=== PATIENT | female | born 1970 | race Caucasian/White ===

== ENCOUNTER 2018-11-21 16:57 | Emergency (ER) | payer MEDICAID, OTHER ==
[~2018-11-21] VITALS: Ht 144.8 cm; Wt 42.3 kg
[2018-11-21 16:58] VITALS: BP 108/64
[2018-11-21] MEDS ORDERED: OMEP-218 (17:03)
[2018-11-21] MEDS ORDERED: INCR1INH (17:03)
[2018-11-21] MEDS ORDERED: VENTAER (17:03)
[2018-11-21] MEDS ORDERED: ATOR1TAB21 (17:03)
[2018-11-21] MEDS ORDERED: HYDR-3363 PO (17:23)
[2018-11-21] MEDS ORDERED: MEDR4PAK PO (17:23)
[2018-11-21] MEDS ORDERED: hydrOXYzine 25 MG TAB PO ONE (17:30)
[2018-11-21] MEDS ORDERED: predniSONE 20 MG TAB PO ONE (17:30)
[2018-11-22] MEDS ORDERED: DIPH25CA PO (03:33)
[2018-11-22] MEDS ORDERED: PEPC1TAB5 PO (03:33)
== END 2018-11-21 17:37 | disposition home or self-care (01) ==
LOC: M ED 16:57
DX: T49.4X1A Poisoning by keratolytics, keratoplastics, and other hair treatment drugs and preparations, accidental (unintentional), initial encounter (principal); Y92.9 Unspecified place or not applicable; Y93.9 Activity, unspecified; E78.00 Pure hypercholesterolemia, unspecified; J44.9 Chronic obstructive pulmonary disease, unspecified; Z72.0 Tobacco use; Z79.899 Other long term (current) drug therapy; Z88.6 Allergy status to analgesic agent

== ENCOUNTER 2018-11-22 01:50 | Emergency (ER) | payer OTHER ==
[~2018-11-22] VITALS: Ht 144.8 cm; Wt 42.4 kg
[~2018-11-22 01:50] MED LIST: ATOR1TAB21; HYDR-3363 PO; INCR1INH; MEDR4PAK PO; OMEP-218; VENTAER
[2018-11-22] MEDS ORDERED: FAMOTIDINE INJ 20MG/2ML VIAL (S0028) IVP ONE (02:30)
[2018-11-22] MEDS ORDERED: methylPREDNISolone INJ 125 MG/2 ML VIAL (J2930) IV ONE (02:30)
[2018-11-22] MEDS ORDERED: diphenhydrAMINE INJ 50MG/ML VIAL (J1200) IV ONE (02:30)
[2018-11-22 02:37] LABS: BASO % 0.1 % (0.0-1.0); EOS % 0.2 % (0.0-3.0); HEMATOCRIT 45.5 % (36.0-47.0); HEMOGLOBIN 15.5 g/dl (12.0-15.5); LYMPH # 0.9 10^3/uL (1.5-4.5); LYMPH % 10.5 % (24.0-44.0); MEAN CORPUSCULAR HEMOGLOBIN 33.3 pg (27.0-33.0); MEAN CORPUSCULAR HGB CONC 34.1 g/dl (32.0-36.5); MEAN CORPUSCULAR VOLUME 97.8 fl (80.0-96.0); MONO # 0.2 10^3/uL (0.0-0.8); MONO % 1.9 % (0.0-5.0); NEUTROPHILS # 7.5 10^3/uL (1.8-7.7); NEUTROPHILS % 86.9 % (36.0-66.0); PLATELET COUNT, AUTOMATED 344 10^3/uL (150-450); RED BLOOD COUNT 4.65 10^6/uL (4.00-5.40); WHITE BLOOD COUNT 8.6 10^3/uL (4.0-10.0)
[2018-11-22 03:15] LABS: BLOOD UREA NITROGEN 9 MG/DL (7-18); CALCIUM LEVEL 9.2 MG/DL (8.5-10.1); CARBON DIOXIDE LEVEL 27 MEQ/L (21-32); CHLORIDE LEVEL 106 MEQ/L (98-107); CREATININE FOR GFR 0.91 MG/DL (0.55-1.30); GLOMERULAR FILTRATION RATE > 60.0 (>58); GLUCOSE, FASTING 156 MG/DL (70-100); POTASSIUM SERUM 4.4 MEQ/L (3.5-5.1); SODIUM LEVEL 139 MEQ/L (136-145)
[2018-11-22] MEDS ORDERED: DIPH25CA PO (03:33)
[2018-11-22] MEDS ORDERED: PEPC1TAB5 PO (03:33)
[2018-11-22 04:00] VITALS: BP 106/66
== END 2018-11-22 04:06 | disposition home or self-care (01) ==
LOC: M ED 01:50
DX: R22.0 Localized swelling, mass and lump, head (principal); T49.4X5A Adverse effect of keratolytics, keratoplastics, and other hair treatment drugs and preparations, initial encounter; X58.XXXA Exposure to other specified factors, initial encounter; Y92.89 Other specified places as the place of occurrence of the external cause; Z79.899 Other long term (current) drug therapy; Z88.8 Allergy status to other drugs, medicaments and biological substances
CPT/HCPCS: 36415; 80048; 85025; 86140; 96374; 96375; 99284; J1200; J2930

== ENCOUNTER → 2019-07-12 | Outpatient (CLI) | payer OTHER, MEDICAID ==
[~2019-07-12] MED LIST changes: +DIPH25CA32 PO; +PEPC1TAB5 PO
--- NOTE | 2019-07-12 12:09 | REPMRS ---
Patient History The patient states she has not had a clinical breast exam in over a year. Family history of unknown cancer in father, mouth cancer in maternal aunt. Digital Mammo Screening Bilat: July 12, 2019 - Exam #: [id number] Bilateral CC and MLO view(s) were taken. Technologist: Federica Cheema, Technologist Prior study comparison: March 13, 2017, bilateral digital woman screen mammo, performed at Outside [facility]. March 05, 2016, bilateral digital woman screen mammo, performed at Outside [facility]. February 03, 2015, bilateral digital woman screen mammo, performed at Outside Facility. FINDINGS: There are scattered fibroglandular densities. There has been no change in the appearance of the mammogram from the prior studies. There is a mild amount of scattered fibroglandular density which is fairly symmetric. There is no interval development of dominant mass, architectural distortion, or grouped microcalcification suggestive of malignancy. 3-D tomosynthesis shows no additional findings. Assessment: BI-RADS/ACR category 1 mammogram. Negative Mammogram. Recommendation Routine screening mammogram of both breasts in 1 year (for women over age 40). This patient's Lifetime Breast Cancer Risk is estimated at 7.5 %. This mammogram was interpreted with the aid of an FDA-approved computer-aided dectection system. Electronically Signed By: Javid Arevalo MD 07/12/19 [id number]
== END ==
LOC: M RAD 09:33
PROVIDERS: ATTEND Physician Assistant
DX: Z12.31 Encounter for screening mammogram for malignant neoplasm of breast (principal)

== ENCOUNTER 2019-09-09 15:37 | Emergency (ER) | payer MEDICAID, OTHER ==
[~2019-09-09] VITALS: Ht 144.8 cm; Wt 42.4 kg
[2019-09-09] MEDS ORDERED: BACL10TA2 (15:46)
[2019-09-09 17:42] VITALS: BP 118/73
== END 2019-09-09 17:46 | disposition home or self-care (01) ==
LOC: M ED 15:37
DX: S20.462A Insect bite (nonvenomous) of left back wall of thorax, initial encounter (principal); I10 Essential (primary) hypertension; F17.210 Nicotine dependence, cigarettes, uncomplicated; Y92.017 Garden or yard in single-family (private) house as the place of occurrence of the external cause; Y93.H2 Activity, gardening and landscaping; Z88.6 Allergy status to analgesic agent; Z79.51 Long term (current) use of inhaled steroids; Z79.899 Other long term (current) drug therapy

== ENCOUNTER 2019-11-19 07:59 | Emergency (ER) | payer OTHER ==
[~2019-11-19] VITALS: Ht 144.8 cm; Wt 42.3 kg
[~2019-11-19 07:59] MED LIST changes: +BACL10TA2
[2019-11-19] MEDS ORDERED: ALBUTEROL SULFATE 2.5 MG/0.5 ML INH NEB SOLN NEB ONE (08:30)
--- NOTE | 2019-11-19 09:00 | REP ---
CHEST, TWO VIEWS: Two views of the chest are performed. No infiltrate is seen bilaterally. There is a possible 7 mm nodular density in the right upper lobe. Heart is normal in size. There is mild calcification of the thoracic aorta. The mediastinal silhouette is unremarkable. No compression deformity is seen of thoracic vertebral bodies. IMPRESSION: No acute infiltrate. Possible 7 mm nodule right upper lobe. Recommend CT of the chest to further evaluate. Electronically Signed by Donnell Downing MD 11/19/2019 04:40 P
[2019-11-19 09:03] LABS: BASO # 0.1 10^3/uL (0.0-0.2); BASO % 0.4 % (0.0-1.0); EOS # 0.3 10^3/uL (0.0-0.5); EOS % 2.7 % (0.0-3.0); HEMATOCRIT 45.4 % (36.0-47.0); HEMOGLOBIN 15.2 g/dl (12.0-15.5); LYMPH # 2.5 10^3/uL (1.5-5.0); LYMPH % 20.1 % (24.0-44.0); MEAN CORPUSCULAR HEMOGLOBIN 32.8 pg (27.0-33.0); MEAN CORPUSCULAR HGB CONC 33.5 g/dl (32.0-36.5); MEAN CORPUSCULAR VOLUME 97.8 fl (80.0-96.0); MONO # 0.8 10^3/uL (0.0-0.8); MONO % 6.4 % (0.0-5.0); NEUTROPHILS # 8.7 10^3/uL (1.5-8.5); NEUTROPHILS % 70.2 % (36.0-66.0); PLATELET COUNT, AUTOMATED 351 10^3/uL (150-450); RED BLOOD COUNT 4.64 10^6/uL (4.00-5.40); WHITE BLOOD COUNT 12.4 10^3/uL (4.0-10.0)
[2019-11-19] MEDS ORDERED: IPRATROPIUM 0.5MG/ALBUTEROL 2.5MG INH SOL UD 3ML (DUONEB)(J7620) NEB ONE ×2 (09:15→10:00)
[2019-11-19 09:23] LABS: INFLUENZA A AMPLIFICATION NEGATIVE (NEGATIVE); INFLUENZA B AMPLIFICATION NEGATIVE (NEGATIVE)
[2019-11-19 09:30] LABS: BLOOD UREA NITROGEN 12 MG/DL (7-18); CALCIUM LEVEL 9.4 MG/DL (8.5-10.1); CARBON DIOXIDE LEVEL 27 MEQ/L (21-32); CHLORIDE LEVEL 105 MEQ/L (98-107); CK-MB VALUE MASS 1.4 NG/ML (<3.6); CPK CREATINE PHOSPHOKINASE 329 U/L (26-192); CREATININE FOR GFR 0.82 MG/DL (0.55-1.30); GLOMERULAR FILTRATION RATE > 60.0 (>58); GLUCOSE, FASTING 71 MG/DL (70-100); MB/CK RELATIVE INDEX 0.43 (< OR =4); POTASSIUM SERUM 4.5 MEQ/L (3.5-5.1); SODIUM LEVEL 141 MEQ/L (136-145); TROPONIN I < 0.02 NG/ML (< 0.10)
[2019-11-19] MEDS ORDERED: methylPREDNISolone INJ 125 MG/2 ML VIAL (J2930) IV ONE (09:45)
[2019-11-19 10:09] LABS: NT-PRO BNP 41 PG/ML (<125)
[2019-11-19] MEDS ORDERED: BENZONATATE 100 MG CAP PO ONE (10:30)
[2019-11-19] MEDS ORDERED: AZIT-12 PO (10:52)
[2019-11-19] MEDS ORDERED: PRED20TA PO (10:52)
[2019-11-19] MEDS ORDERED: TESS100C PO (10:55)
[2019-11-19 11:01] VITALS: BP 105/61
--- NOTE | 2019-11-22 07:59 | ED PDOC ---
Post-Departure Follow-Up dr guillaume and [facility] faxed formal repiort iof cxr for Gail Delaney MD Nov 22, 2019 07:58
== END 2019-11-19 11:11 | disposition home or self-care (01) ==
LOC: M ED 07:59
DX: J44.1 Chronic obstructive pulmonary disease with (acute) exacerbation (principal); J06.9 Acute upper respiratory infection, unspecified; K21.9 Gastro-esophageal reflux disease without esophagitis; R91.1 Solitary pulmonary nodule; F17.200 Nicotine dependence, unspecified, uncomplicated; Z79.51 Long term (current) use of inhaled steroids; Z79.899 Other long term (current) drug therapy; Z88.6 Allergy status to analgesic agent; Z88.8 Allergy status to other drugs, medicaments and biological substances
CPT/HCPCS: 71046; 80048; 82550; 82553; 83880; 85025; 87502; 87880; 94640; 96374; 99284; J2930

== ENCOUNTER 2019-12-21 12:53 | Emergency (ER) | payer OTHER ==
[~2019-12-21] VITALS: Ht 144.8 cm; Wt 43.2 kg
[~2019-12-21 12:53] MED LIST changes: -TRIA1CR80
[2019-12-21] MEDS ORDERED: TRIA1CR80 (12:59)
--- NOTE | 2019-12-21 14:02 | REP ---
Left elbow five views: There are no comparisons. There is no fracture or dislocation. Mineralization and joint spaces are normal. There is questionably a small joint effusion. There are no calcifications or foreign bodies. Impression: Questionable small effusion, otherwise, negative left elbow. Electronically Signed by Donnell Griffin MD 12/21/2019 01:54 P
[2019-12-21 18:52] LABS: BASO % 0.2 % (0.0-1.0); EOS # 0.3 10^3/uL (0.0-0.5); EOS % 3.3 % (0.0-3.0); HEMATOCRIT 47.1 % (36.0-47.0); HEMOGLOBIN 15.5 g/dl (12.0-15.5); LYMPH # 3.3 10^3/uL (1.5-5.0); LYMPH % 35.6 % (24.0-44.0); MEAN CORPUSCULAR HEMOGLOBIN 31.8 pg (27.0-33.0); MEAN CORPUSCULAR HGB CONC 32.9 g/dl (32.0-36.5); MEAN CORPUSCULAR VOLUME 96.7 fl (80.0-96.0); MONO # 0.5 10^3/uL (0.0-0.8); MONO % 5.7 % (0.0-5.0); NEUTROPHILS # 5.1 10^3/uL (1.5-8.5); NEUTROPHILS % 54.8 % (36.0-66.0); PLATELET COUNT, AUTOMATED 384 10^3/uL (150-450); RED BLOOD COUNT 4.87 10^6/uL (4.00-5.40); WHITE BLOOD COUNT 9.4 10^3/uL (4.0-10.0)
[2019-12-21 19:09] LABS: BLOOD UREA NITROGEN 6 MG/DL (7-18); C REACTIVE PROTEIN QUANTITATIV 0.43 MG/DL (0.00-0.30); CALCIUM LEVEL 9.7 MG/DL (8.5-10.1); CARBON DIOXIDE LEVEL 28 MEQ/L (21-32); CHLORIDE LEVEL 103 MEQ/L (98-107); CREATININE FOR GFR 0.79 MG/DL (0.55-1.30); GLOMERULAR FILTRATION RATE > 60.0 (>58); GLUCOSE, FASTING 108 MG/DL (70-100); SODIUM LEVEL 137 MEQ/L (136-145)
[2019-12-21 19:12] LABS: ERYTHROCYTE SEDIMENTATION RATE 4 mm/hr (0-20)
[2019-12-21] MEDS ORDERED: PRED20TA PO (19:44)
[2019-12-21 19:50] VITALS: BP 104/74
== END 2019-12-21 19:50 | disposition home or self-care (01) ==
LOC: M ED 12:53
DX: M70.22 Olecranon bursitis, left elbow (principal); J44.9 Chronic obstructive pulmonary disease, unspecified; E78.5 Hyperlipidemia, unspecified; K21.9 Gastro-esophageal reflux disease without esophagitis; M54.5 Low back pain; F17.210 Nicotine dependence, cigarettes, uncomplicated; Z88.6 Allergy status to analgesic agent; Z79.52 Long term (current) use of systemic steroids; Z79.899 Other long term (current) drug therapy

== ENCOUNTER → 2019-12-21 | Outpatient (CLI) | payer OTHER ==
[~2019-12-21] MED LIST changes: +AZIT-12 PO; +PRED20TA PO; +TESS100C PO; +TRIA1CR80
--- NOTE | 2019-12-22 04:44 | REP ---
Follow up abnormal lung findings. Technique: Axial noncontrast images from the thoracic inlet to the upper abdomen with coronal and sagittal re-formations. Comparison: Chest x-ray dated 11/19/2019. Findings: There is a 7 mm noncalcified solitary nodule in the right upper lobe (image 37). Advanced emphysematous changes noted bilaterally. No further consolidation, significant nodule or mass lesion. No effusion. No pneumothorax. Tracheobronchial tree is patent. Mediastinal lymph nodes up to 11 mm are nonspecific. Minimal atherosclerotic changes of the thoracic aorta noted without aneurysm. No cardiomegaly or pericardial effusion. Impression: 7 mm noncalcified solitary nodule in the right upper lobe. Further evaluation and investigation is recommended as neoplasm cannot be excluded. Electronically Signed by Sunny Almodovar MD 12/22/2019 04:35 A
== END ==
LOC: M RAD 10:01
PROVIDERS: ATTEND Internal Medicine Pulmonary Disease
DX: R91.8 Other nonspecific abnormal finding of lung field (principal)

== ENCOUNTER → 2020-04-27 | Outpatient (CLI) | payer OTHER ==
[~2020-04-27] MED LIST changes: +TRIA1CR80
--- NOTE | 2020-04-27 21:24 | REP ---
Clinical: Follow up abnormal lung findings. Technique: Axial noncontrast images from the thoracic inlet to the upper abdomen with coronal and sagittal re-formations. Comparison: 12/21/2019. Findings: 7 mm noncalcified nodule in the right upper lobe (image 36) is again identified and essentially unchanged. No new nodule or mass lesion is appreciated. No acute consolidation. No effusion. No pneumothorax. Chronic advanced emphysematous changes with scattered scarring remains stable. No obvious significant adenopathy. Mediastinum demonstrates atherosclerotic changes to the thoracic aorta and coronary arteries without aortic aneurysm or cardiomegaly. No pericardial effusion. Limited upper abdomen demonstrates normal bilateral adrenal glands. Surrounding musculoskeletal structures are intact without focal osseous abnormality. Impression: 1. Stable 7 mm noncalcified nodule in the right upper lobe. 2. Advanced chronic emphysematous changes. 3. No further, new nodule or mass lesion appreciated. Electronically Signed by Sunny Almodovar MD 04/27/2020 09:16 P
== END ==
LOC: M RAD 10:11
PROVIDERS: ATTEND Internal Medicine Pulmonary Disease
DX: R91.1 Solitary pulmonary nodule (principal); J43.9 Emphysema, unspecified

== ENCOUNTER → 2020-07-13 | Outpatient (CLI) | payer OTHER ==
--- NOTE | 2020-07-31 16:24 | REPMRS ---
Patient History The patient states she had a clinical breast exam in January 2020.Family history of unknown cancer in father, unknown cancer in maternal aunt. Digital Woman Screen Mammo: July 13, 2020 - Exam #: [id number] Bilateral CC and MLO view(s) were taken. Technologist: Katherine Carmen, Technologist Prior study comparison: July 12, 2019, bilateral digital mammo screening bilat performed at [facility]. April 09, 2018, bilateral digital mammo screening bilat, performed at [facility]. March 13, 2017, bilateral digital woman screen mammo, performed at Outside Facility. FINDINGS: The breast tissue is heterogeneously dense. This may lower the sensitivity of mammography. The Volpara volumetric breast density category is: C. There is a moderate amount of heterogeneously dense fibroglandular tissue which is fairly symmetric. There is no interval development of dominant mass, architectural distortion, or grouped microcalcification typical of malignancy. There has been no change in the appearance of the mammogram from the prior studies. 3-D tomosynthesis shows no additional findings. Assessment: BI-RADS/ACR category 1 mammogram. Negative Mammogram. Recommendation Routine screening mammogram of both breasts in 1 year (for women over age 40). This patient's Lifetime Breast Cancer RIsk is estimated at 7.3 %. This mammogram was interpreted with the aid of an FDA-approved computer-aided dectection system. Electronically Signed By: Javid Arevalo MD 07/31/20 [id number]
== END ==
LOC: M WHC 14:02
PROVIDERS: ATTEND Internal Medicine
DX: Z12.31 Encounter for screening mammogram for malignant neoplasm of breast (principal); Z80.9 Family history of malignant neoplasm, unspecified

== ENCOUNTER → 2020-10-16 | Outpatient (CLI) | payer OTHER ==
--- NOTE | 2020-10-18 06:41 | REP ---
INDICATION: SOLITARY PULMONARY NODULE COMPARISON: 04/27/2020, 12/21/2019 TECHNIQUE: Axial noncontrast images from the thoracic inlet to the upper abdomen with coronal and sagittal reformations. This CT examination was performed using the following dose reduction techniques: Automated exposure control, adjustment of mA and/or kv according to the patient's size, and use of iterative reconstruction technique. FINDINGS: Advanced COPD/emphysematous changes with scattered scarring and chronic bronchiectasis are unchanged. 7 mm noncalcified nodule in the right upper lobe (image 36) appears unchanged. No further consolidation, suspicious nodule or mass lesion appreciated. No pleural effusion. No pneumothorax. No significant acute adenopathy. Mediastinum demonstrates atherosclerotic changes to the thoracic aorta and coronary arteries without aortic aneurysm or cardiomegaly. No pericardial effusion. Musculoskeletal structures are intact and without acute osseous abnormality. IMPRESSION: 1. Stable 7 mm noncalcified nodule in the right upper lobe unchanged compared to 12/21/2019. Consider 9-12 month follow-up examination to confirm stability/benignity. 2. Advanced chronic stable COPD/emphysematous changes. <Electronically signed by Sunny Almodovar > 10/18/20 [id number]
== END ==
LOC: M RAD 09:19
PROVIDERS: ATTEND Internal Medicine Pulmonary Disease
DX: R91.1 Solitary pulmonary nodule (principal); J44.9 Chronic obstructive pulmonary disease, unspecified

== ENCOUNTER → 2021-08-20 | Outpatient (CLI) | payer OTHER ==
--- NOTE | 2021-08-20 10:53 | REP ---
INDICATION: PULMONARY NODULE COMPARISON: Multiple the latest 10/16/2020 TECHNIQUE: Standard helical technique without intravenous contrast administration FINDINGS: The mediastinum and pulmonary marybeth are stable. There is no evidence of a mass or adenopathy. There are no pleural or pericardial effusions. There is no change in the imaged upper abdomen or imaged osseous structures. Evaluation of the lung moy shows emphysematous changes status quo. The 7 mm size nodule seen previously in the right upper lobe is unchanged. No new abnormal nodules, masses, or opacities have developed. IMPRESSION: Stable CT findings as described above. Follow-up as per the revised Fleischner society criteria. <Electronically signed by Collin Avila > 08/20/21 [id number]
== END ==
LOC: M RAD 10:17
PROVIDERS: ATTEND Internal Medicine Pulmonary Disease
DX: R91.1 Solitary pulmonary nodule (principal)

== ENCOUNTER → 2022-10-29 | Outpatient (CLI) | payer OTHER ==
[~2022-10-29] MED LIST changes: +OMEP-173; -OMEP-218
== END ==
LOC: M WHC 09:11
PROVIDERS: ATTEND Internal Medicine
DX: Z12.31 Encounter for screening mammogram for malignant neoplasm of breast (principal)

== ENCOUNTER → 2023-10-01 | Outpatient (CLI) | payer OTHER ==
[~2023-10-01] MED LIST changes: +DIPH-435 PO; -DIPH25CA32 PO
== END ==
LOC: M RAD 10:14
PROVIDERS: ATTEND Internal Medicine Pulmonary Disease
DX: Z12.2 Encounter for screening for malignant neoplasm of respiratory organs (principal); F17.218 Nicotine dependence, cigarettes, with other nicotine-induced disorders; R91.1 Solitary pulmonary nodule

== ENCOUNTER → 2024-01-29 | Outpatient (CLI) | payer OTHER ==
[~2024-01-29] MED LIST changes: +GASTROGRAFIN SOLUTION 30ML As Ordered ONE; +ISOVUE-370 76% 100ML VIAL As Ordered ONE
== END ==
LOC: M RAD 13:37
PROVIDERS: ATTEND Surgery
DX: C21.0 Malignant neoplasm of anus, unspecified (principal); J44.9 Chronic obstructive pulmonary disease, unspecified; R91.1 Solitary pulmonary nodule
CPT/HCPCS: 71260; 74177; Q9963; Q9967

== ENCOUNTER → 2024-02-06 | Outpatient (CLI) | payer OTHER ==
[~2024-02-06] MED LIST changes: +ATOR40TA75 PO; -GASTROGRAFIN SOLUTION 30ML As Ordered ONE; -ISOVUE-370 76% 100ML VIAL As Ordered ONE; -OMEP-173; +OMEP-173 PO; +VITA200032 PO
== END ==
LOC: M ONCR 13:43
PROVIDERS: ATTEND General Practice
DX: C21.0 Malignant neoplasm of anus, unspecified (principal); F17.210 Nicotine dependence, cigarettes, uncomplicated; Z71.2 Person consulting for explanation of examination or test findings; Z79.899 Other long term (current) drug therapy; Z80.1 Family history of malignant neoplasm of trachea, bronchus and lung; Z88.6 Allergy status to analgesic agent; Z90.710 Acquired absence of both cervix and uterus; Z98.51 Tubal ligation status

== ENCOUNTER → 2024-02-16 | Outpatient (CLI) | payer OTHER | LOC: M ONCR 15:17 | PROVIDERS: ATTEND General Practice | DX: C21.0 Malignant neoplasm of anus, unspecified (principal); F17.210 Nicotine dependence, cigarettes, uncomplicated; Z71.2 Person consulting for explanation of examination or test findings; Z88.6 Allergy status to analgesic agent ==

== ENCOUNTER → 2024-02-17 | Outpatient (CLI) | payer OTHER | LOC: M WHC 08:59 | PROVIDERS: ATTEND Physician Assistant | DX: Z12.31 Encounter for screening mammogram for malignant neoplasm of breast (principal) ==

== ENCOUNTER 2024-02-23 12:57 | Outpatient (RCR) | payer OTHER | END 2024-02-29 | LOC: M ONCR 12:57 | PROVIDERS: ATTEND General Practice | DX: Z51.0 Encounter for antineoplastic radiation therapy (principal); C21.0 Malignant neoplasm of anus, unspecified ==

== ENCOUNTER → 2024-02-24 | Outpatient (CLI) | payer OTHER ==
[~2024-02-24] VITALS: Ht 144.8 cm; Wt 43.2 kg
[~2024-02-24] MED LIST changes: +LIDOCAINE W/EPINEPHRINE 1% 20ML VIAL As Ordered ONE; +MIDAZOLAM INJ 2MG/2ML VIAL As Ordered ONE; +ceFAZolin 2 GM/D5W 50 ML IV BAG As Ordered ONE; +fentaNYL 100 MCG/2 ML INJECTION As Ordered ONE
[2024-02-24 12:15] VITALS: TEMP 98.4
[2024-02-24] MEDS: ceFAZolin SOD 2 GM in IV 1 EA IV ONE (13:45)
[2024-02-24] MEDS: NS 1,000 ML IV SCH (13:45)
[2024-02-24 15:20] VITALS: BP 114/55; O2SAT 95
== END ==
LOC: M IRPRO 11:43
PROVIDERS: ATTEND Specialist
DX: C21.0 Malignant neoplasm of anus, unspecified (principal)
CPT/HCPCS: 36561; 99152; 99153; J0690; J2250; J3010

== ENCOUNTER 2024-03-21 20:56 | Emergency (ER) | payer OTHER ==
[~2024-03-21] VITALS: Ht 144.8 cm; Wt 42.1 kg
[~2024-03-21 20:56] MED LIST changes: -LIDOCAINE W/EPINEPHRINE 1% 20ML VIAL As Ordered ONE; -MIDAZOLAM INJ 2MG/2ML VIAL As Ordered ONE; +ONDA-84 PO; +POTA-151 PO; +PROC10TA5 PO; -ceFAZolin 2 GM/D5W 50 ML IV BAG As Ordered ONE; -fentaNYL 100 MCG/2 ML INJECTION As Ordered ONE
[2024-03-21 22:28] LABS: VENOUS BASE EXCESS -3.3 (-2.0-2.0); VENOUS HCO3 21.2 MMOL/L (23.0-27.0); VENOUS O2 SATURATION 85.1 % (60.0-80.0); VENOUS PARTIAL PRESSURE CO2 36.8 mmHg (38.0-50.0); VENOUS PARTIAL PRESSURE O2 45.4 mmHg (30.0-50.0); VENOUS PH 7.379 UNITS (7.330-7.430); VENOUS STANDARD HCO3 21.5 MMOL/L; VENOUS TOTAL CO2 22.4 MMOL/L (24.0-28.0)
[2024-03-21 22:46] LABS: BASO # 0.1 10^3/uL (0.0-0.2); EOS # 0.1 10^3/uL (0.0-0.5); HEMATOCRIT 41.2 % (36.0-47.0); HEMOGLOBIN 14.4 g/dl (12.0-15.5); LYMPH # 1.4 10^3/uL (1.5-5.0); LYMPH % 27.7 % (24.0-44.0); MEAN CORPUSCULAR HEMOGLOBIN 33.3 pg (27.0-33.0); MEAN CORPUSCULAR VOLUME 95.4 fl (80.0-96.0); MONO # 0.2 10^3/uL (0.0-0.8); MONO % 4.4 % (2.0-8.0); NEUTROPHILS # 3.1 10^3/uL (1.5-8.5); NEUTROPHILS % 62.9 % (36.0-66.0); PLATELET COUNT, AUTOMATED 189 10^3/uL (150-450); RED BLOOD COUNT 4.32 10^6/uL (4.00-5.40)
[2024-03-21 23:02] LABS: ALBUMIN 3.5 G/DL (3.2-5.2); ALKALINE PHOSPHATASE 93 U/L (46-116); ALT/SGPT 11 U/L (7.0-40); AST/SGOT 9 U/L (<34); BILIRUBIN,DIRECT 0.2 MG/DL (<0.4); BILIRUBIN,TOTAL 0.5 MG/DL (0.3-1.2); BLOOD UREA NITROGEN 7 MG/DL (9-23); CARBON DIOXIDE LEVEL 25 MMOL/L (20-31); CHLORIDE LEVEL 102 MMOL/L (98-107); CK-MB VALUE MASS < 1.0 NG/ML (<3.6); CPK CREATINE PHOSPHOKINASE 85 U/L (34-145); CREATININE FOR GFR 0.53 MG/DL (0.55-1.30); GLOMERULAR FILTRATION RATE > 60.0 (>51); GLUCOSE, FASTING 96 MG/DL (60-100); MB/CK RELATIVE INDEX 1.17 (< OR =4); POTASSIUM SERUM 3.5 MMOL/L (3.5-5.1); SODIUM LEVEL 135 MMOL/L (136-145); TOTAL PROTEIN 6.1 G/DL (5.7-8.2)
[2024-03-21 23:04] LABS: THYROID STIMULATING HORMONE 1.996 uIU/ML (0.55-4.78); THYROXINE (T4) 12.1 UG/DL (4.5-10.9)
[2024-03-21] MEDS: NS 1,000 ML IV ONE (23:31)
[2024-03-21] MEDS: MAGIC MOUTHWASH *ED ONLY* 5ML ORAL SYRINGE SS ONE (23:39)
[2024-03-22] MEDS ORDERED: MAGICMW SSP (00:21)
[2024-03-22] MEDS ORDERED: NYST-38 SS (00:21)
[2024-03-22] MEDS ORDERED: SODIUM CHLORIDE 0.9% INJ 10 ML SYR IV PRN (00:45)
[2024-03-22] MEDS: NYSTATIN 500,000U/5ML SUSP UDC SS ONE (00:53)
[2024-03-22] MEDS: SODIUM CHLORIDE 0.9% INJ 10 ML SYR IV SCH (00:55)
[2024-03-22 01:00] VITALS: BP 113/61; TEMP 97.8; O2SAT 95
== END 2024-03-22 01:11 | disposition home or self-care (01) ==
LOC: M ED 20:56
DX: T45.1X5A Adverse effect of antineoplastic and immunosuppressive drugs, initial encounter (principal); B37.0 Candidal stomatitis; J44.9 Chronic obstructive pulmonary disease, unspecified; Z88.8 Allergy status to other drugs, medicaments and biological substances; Z79.51 Long term (current) use of inhaled steroids; Z79.899 Other long term (current) drug therapy

== ENCOUNTER → 2024-03-30 | Outpatient (RCR) | payer OTHER ==
[~2024-03-30] MED LIST changes: +MAGICMW SSP; +NYST-38 SS
== END ==
LOC: M ONCR 03-15 12:38
PROVIDERS: ATTEND General Practice
DX: Z51.0 Encounter for antineoplastic radiation therapy (principal); C21.0 Malignant neoplasm of anus, unspecified

== ENCOUNTER 2024-04-21 13:41 | Outpatient (RCR) | payer OTHER ==
[~2024-04-21 13:41] MED LIST changes: +INCR1INH INH; -VENTAER; +VENTAER INH
[2024-04-27] MEDS ORDERED: ONDA-84 PO (19:44)
[2024-04-27] MEDS ORDERED: CLOT10TR PO (19:44)
[2024-04-27] MEDS ORDERED: PROC10TA5 PO (19:44)
[2024-04-28] MEDS ORDERED: MOME0.1O3 TOP (09:48)
[2024-04-28] MEDS ORDERED: PRED20TA PO (09:48)
[2024-04-30] MEDS ORDERED: POTA20LI16 PO (15:53)
[2024-04-30] MEDS ORDERED: MAGN400T2 PO (15:53)
== END 2024-04-30 ==
LOC: M ONCR 13:41
PROVIDERS: ATTEND General Practice
DX: Z51.0 Encounter for antineoplastic radiation therapy (principal); C21.0 Malignant neoplasm of anus, unspecified

== ENCOUNTER 2024-04-27 13:19 | Inpatient (IN) | payer OTHER ==
[~2024-04-27] VITALS: Ht 144.8 cm; Wt 42.0 kg
[2024-04-27] MEDS: methylPREDNISolone 125MG 2ML VIAL IV ONE (15:50)
[2024-04-27 15:55] LABS: BASO % 0.4 % (0.0-1.0); EOS # 0.1 10^3/uL (0.0-0.5); EOS % 4.3 % (0.0-3.0); HEMATOCRIT 46.7 % (36.0-47.0); HEMOGLOBIN 17.1 g/dl (12.0-15.5); LYMPH # 0.1 10^3/uL (1.5-5.0); LYMPH % 4.3 % (24.0-44.0); MEAN CORPUSCULAR HEMOGLOBIN 33.1 pg (27.0-33.0); MEAN CORPUSCULAR VOLUME 90.5 fl (80.0-96.0); MONO # 0.4 10^3/uL (0.0-0.8); MONO % 14.2 % (2.0-8.0); NEUTROPHILS # 2.1 10^3/uL (1.5-8.5); NEUTROPHILS % 73.6 % (36.0-66.0); RED BLOOD COUNT 5.16 10^6/uL (4.00-5.40); WHITE BLOOD COUNT 2.8 10^3/uL (4.0-10.0)
[2024-04-27] MEDS: NS 1,000 ML IV ONE (15:55)
[2024-04-27] MEDS: FAMOTIDINE IV BAG 20 MG in IV 1 EA IV ONE (15:55)
[2024-04-27 16:14] LABS: ERYTHROCYTE SEDIMENTATION RATE 20 mm/hr (0-30)
[2024-04-27 16:45] LABS: MEAN CORPUSCULAR HGB CONC 36.6 g/dl (32.0-36.5); PLATELET COUNT, AUTOMATED 16 10^3/uL (150-450)
[2024-04-27 17:25] LABS: ALBUMIN 2.7 G/DL (3.2-5.2); ALKALINE PHOSPHATASE 78 U/L (46-116); ALT/SGPT < 9 U/L (7.0-40); AST/SGOT < 8 U/L (<34); BILIRUBIN,DIRECT 0.1 MG/DL (<0.4); BILIRUBIN,TOTAL 0.3 MG/DL (0.3-1.2); BLOOD UREA NITROGEN < 5 MG/DL (9-23); CALCIUM LEVEL 7.8 MG/DL (8.5-10.1); CARBON DIOXIDE LEVEL 28 MMOL/L (20-31); CHLORIDE LEVEL 102 MMOL/L (98-107); CREATININE FOR GFR 0.49 MG/DL (0.55-1.30); GLOMERULAR FILTRATION RATE > 60.0 (>51); GLUCOSE, FASTING 95 MG/DL (60-100); POTASSIUM SERUM 2.4 MMOL/L (3.5-5.1); SODIUM LEVEL 138 MMOL/L (136-145); TOTAL PROTEIN 5.5 G/DL (5.7-8.2)
[2024-04-27 17:42] LABS: BASO % 0.3 % (0.0-1.0); EOS # 0.2 10^3/uL (0.0-0.5); EOS % 4.2 % (0.0-3.0); HEMATOCRIT 34.6 % (36.0-47.0); LYMPH # 0.2 10^3/uL (1.5-5.0); LYMPH % 4.2 % (24.0-44.0); MEAN CORPUSCULAR HEMOGLOBIN 33.4 pg (27.0-33.0); MEAN CORPUSCULAR HGB CONC 35.8 g/dl (32.0-36.5); MEAN CORPUSCULAR VOLUME 93.3 fl (80.0-96.0); MONO # 0.4 10^3/uL (0.0-0.8); MONO % 10.8 % (2.0-8.0); NEUTROPHILS # 2.9 10^3/uL (1.5-8.5); NEUTROPHILS % 80.2 % (36.0-66.0); RED BLOOD COUNT 3.71 10^6/uL (4.00-5.40); WHITE BLOOD COUNT 3.6 10^3/uL (4.0-10.0)
[2024-04-27 17:45] LABS: PLATELET COUNT, AUTOMATED 25 10^3/uL (150-450)
[2024-04-27 17:46] LABS: HEMOGLOBIN 12.4 g/dl (12.0-15.5)
[2024-04-27 17:54] LABS: PROCALCITONIN 0.13 ng/ml
[2024-04-27 18:24] LABS: BLOOD UREA NITROGEN < 5 MG/DL (9-23); CALCIUM LEVEL 7.6 MG/DL (8.5-10.1); CARBON DIOXIDE LEVEL 29 MMOL/L (20-31); CHLORIDE LEVEL 103 MMOL/L (98-107); GLOMERULAR FILTRATION RATE > 60.0 (>51); GLUCOSE, FASTING 99 MG/DL (60-100); POTASSIUM SERUM 2.5 MMOL/L (3.5-5.1); SODIUM LEVEL 137 MMOL/L (136-145)
[2024-04-27] MEDS: OMEPRAZOLE 20MG CAP PO ONE (18:24)
[2024-04-27] MEDS: POTASSIUM CHLORIDE 10MEQ SR TABLET PO ONE (18:48)
[2024-04-27] MEDS: KCL 10MEQ/100ML SWI (KRUN) 10 MEQ in IV 1 EA IV ONE (18:49)
[2024-04-27 18:56] LABS: MAGNESIUM LEVEL 0.8 MG/DL (1.8-2.4)
[2024-04-27] MEDS ORDERED: ONDA-84 PO (19:44)
[2024-04-27] MEDS ORDERED: PROC10TA5 PO (19:44)
[2024-04-27] MEDS ORDERED: CLOT10TR PO (19:44)
[2024-04-27] MEDS ORDERED: HOME MED LIST COMPLETE! XX SCH (19:50)
[2024-04-27] MEDS ORDERED: ACETAMINOPHEN TAB 650MG DOSE (2X325MG) PO PRN (19:50)
[2024-04-27] MEDS: MAG SULF 1GM/100ML (MAG RUN) 1 GM in IV 1 EA IV ONE (19:53)
[2024-04-27] MEDS ORDERED: PROCHLORPERAZINE 5MG TAB PO PRN (20:00)
[2024-04-27] MEDS ORDERED: ALBUTEROL 90 MCG/ACT 8GM HFA INHALER INH PRN (20:00)
[2024-04-27] MEDS ORDERED: ONDANSETRON 4MG TAB PO PRN (20:00)
[2024-04-27] MEDS: OMEPRAZOLE 20MG CAP PO SCH (21:00)
[2024-04-27] MEDS ORDERED: NYSTATIN 500,000U/5ML SUSP UDC SS SCH (21:00)
[2024-04-27] MEDS: CLOTRIMAZOLE 10 MG TROCHE PO SCH (21:00)
[2024-04-27] MEDS: ATORVASTATIN 20 MG TAB PO SCH (21:06)
[2024-04-27] MEDS: HYDROCORTISONE 1% CREAM 30GM TOP SCH (21:06)
[2024-04-27] MEDS: NS 1,000 ML IV SCH (21:07)
[2024-04-27] MEDS: MAG SULF 1GM/100ML (MAG RUN) 1 GM in IV 1 EA IV SCH (21:07)
[2024-04-27 22:07] VITALS: BP 114/58; TEMP 96.8; O2SAT 92
[2024-04-27] MEDS: KCL 10MEQ/100ML SWI (KRUN) 10 MEQ in IV 1 EA IV SCH (22:56)
[2024-04-28] VITALS: BP 100/57; TEMP 98.7; O2SAT 93
[2024-04-28 00:56] LABS: BLOOD UREA NITROGEN < 5 MG/DL (9-23); CALCIUM LEVEL 7.8 MG/DL (8.5-10.1); CARBON DIOXIDE LEVEL 26 MMOL/L (20-31); CHLORIDE LEVEL 104 MMOL/L (98-107); CREATININE FOR GFR 0.53 MG/DL (0.55-1.30); GLOMERULAR FILTRATION RATE > 60.0 (>51); GLUCOSE, FASTING 144 MG/DL (60-100); MAGNESIUM LEVEL 2.3 MG/DL (1.8-2.4); POTASSIUM SERUM 3.6 MMOL/L (3.5-5.1); SODIUM LEVEL 136 MMOL/L (136-145)
[2024-04-28 04:00] VITALS: BP 107/63; TEMP 98.4; O2SAT 93
[2024-04-28 04:18] LABS: HEMATOCRIT 31.3 % (36.0-47.0); HEMOGLOBIN 11.4 g/dl (12.0-15.5); MEAN CORPUSCULAR HEMOGLOBIN 33.8 pg (27.0-33.0); MEAN CORPUSCULAR HGB CONC 36.4 g/dl (32.0-36.5); MEAN CORPUSCULAR VOLUME 92.9 fl (80.0-96.0); RED BLOOD COUNT 3.37 10^6/uL (4.00-5.40); WHITE BLOOD COUNT 2.8 10^3/uL (4.0-10.0)
[2024-04-28 04:21] LABS: PLATELET COUNT, AUTOMATED 22 10^3/uL (150-450)
[2024-04-28 04:57] LABS: ALBUMIN 2.4 G/DL (3.2-5.2); ALKALINE PHOSPHATASE 71 U/L (46-116); ALT/SGPT < 9 U/L (7.0-40); AST/SGOT < 8 U/L (<34); BILIRUBIN,TOTAL < 0.2 MG/DL (0.3-1.2); BLOOD UREA NITROGEN < 5 MG/DL (9-23); CALCIUM LEVEL 7.6 MG/DL (8.5-10.1); CARBON DIOXIDE LEVEL 25 MMOL/L (20-31); CHLORIDE LEVEL 110 MMOL/L (98-107); CREATININE FOR GFR 0.47 MG/DL (0.55-1.30); GLOMERULAR FILTRATION RATE > 60.0 (>51); GLUCOSE, FASTING 145 MG/DL (60-100); MAGNESIUM LEVEL 2.1 MG/DL (1.8-2.4); POTASSIUM SERUM 4.1 MMOL/L (3.5-5.1); SODIUM LEVEL 139 MMOL/L (136-145); TOTAL PROTEIN 4.9 G/DL (5.7-8.2)
[2024-04-28 08:00] VITALS: BP 105/65; TEMP 97.2; O2SAT 93
[2024-04-28] MEDS ORDERED: VANICREAM MOISTURIZING SKIN CREAM 113GM TUBE TOP SCH (09:00)
[2024-04-28] MEDS ORDERED: MOME0.1O3 TOP (09:48)
[2024-04-28] MEDS ORDERED: PRED20TA PO (09:48)
[2024-04-28 12:00] VITALS: BP 102/59; TEMP 98.1; O2SAT 94
== END 2024-04-28 11:15 | disposition home or self-care (01) | DRG 425 ==
LOC: M ED 13:19 → M ED INP 19:50 → M ICU 21:56
PROVIDERS: ADMIT Preventive Medicine Undersea and Hyperbaric Medicine; ATTEND Family Medicine
DX: E87.6 Hypokalemia (principal); E43 Unspecified severe protein-calorie malnutrition; C21.0 Malignant neoplasm of anus, unspecified; D69.6 Thrombocytopenia, unspecified; E83.42 Hypomagnesemia; J44.9 Chronic obstructive pulmonary disease, unspecified; K21.9 Gastro-esophageal reflux disease without esophagitis; L27.0 Generalized skin eruption due to drugs and medicaments taken internally; R19.7 Diarrhea, unspecified; R53.83 Other fatigue; Z79.899 Other long term (current) drug therapy; Z88.6 Allergy status to analgesic agent; Z88.8 Allergy status to other drugs, medicaments and biological substances

== ENCOUNTER → 2024-04-30 | Outpatient (CLI) | payer OTHER ==
[~2024-04-30] MED LIST changes: +CLOT10TR PO; +MAGN400T2 PO; +MOME0.1O3 TOP; +POTA20LI16 PO
[2024-04-30 15:02] LABS: BASO % 0.1 % (0.0-1.0); EOS % 0.2 % (0.0-3.0); HEMOGLOBIN 12.6 g/dl (12.0-15.5); LYMPH # 0.5 10^3/uL (1.5-5.0); LYMPH % 5.8 % (24.0-44.0); MEAN CORPUSCULAR VOLUME 94.3 fl (80.0-96.0); MONO # 0.4 10^3/uL (0.0-0.8); MONO % 4.7 % (2.0-8.0); NEUTROPHILS # 7.5 10^3/uL (1.5-8.5); NEUTROPHILS % 88.6 % (36.0-66.0); RED BLOOD COUNT 3.71 10^6/uL (4.00-5.40); WHITE BLOOD COUNT 8.5 10^3/uL (4.0-10.0)
[2024-04-30 15:15] LABS: PLATELET COUNT, AUTOMATED 29 10^3/uL (150-450)
[2024-04-30 15:33] LABS: ALBUMIN 3.1 G/DL (3.2-5.2); ALKALINE PHOSPHATASE 88 U/L (46-116); ALT/SGPT 15 U/L (7.0-40); AST/SGOT < 8 U/L (<34); BILIRUBIN,TOTAL 0.2 MG/DL (0.3-1.2); BLOOD UREA NITROGEN 7 MG/DL (9-23); CALCIUM LEVEL 9.3 MG/DL (8.5-10.1); CARBON DIOXIDE LEVEL 28 MMOL/L (20-31); CHLORIDE LEVEL 103 MMOL/L (98-107); CREATININE FOR GFR 0.51 MG/DL (0.55-1.30); GLOMERULAR FILTRATION RATE > 60.0 (>51); GLUCOSE, FASTING 100 MG/DL (60-100); MAGNESIUM LEVEL 1.6 MG/DL (1.8-2.4); POTASSIUM SERUM 3.5 MMOL/L (3.5-5.1); SODIUM LEVEL 138 MMOL/L (136-145); TOTAL PROTEIN 5.9 G/DL (5.7-8.2)
== END ==
LOC: M ONCR 14:01
PROVIDERS: ATTEND General Practice
DX: C21.0 Malignant neoplasm of anus, unspecified (principal); Z79.52 Long term (current) use of systemic steroids; R23.3 Spontaneous ecchymoses; L30.8 Other specified dermatitis
CPT/HCPCS: 36415; 80053; 83735; 85025; 85049; 85055; G0463

== ENCOUNTER → 2024-05-18 | Outpatient (CLI) | payer OTHER | LOC: M ONCR 14:22 | PROVIDERS: ATTEND General Practice | DX: K64.9 Unspecified hemorrhoids (principal); A63.0 Anogenital (venereal) warts ==

== ENCOUNTER → 2024-05-25 | Outpatient (CLI) | payer OTHER ==
[~2024-05-25] MED LIST changes: +LIDOCAINE 1% MDV 20ML VIAL As Ordered ONE; +LIDOCAINE W/EPINEPHRINE 1% 20ML VIAL As Ordered ONE; +MIDAZOLAM INJ 2MG/2ML VIAL As Ordered ONE; +NS 1,000 ML IV SCH; +ceFAZolin 2 GM/D5W 50 ML IV BAG As Ordered ONE; +ceFAZolin SOD 2 GM in IV 1 EA IV ONE; +fentaNYL 100 MCG/2 ML INJECTION As Ordered ONE
[2024-05-25 09:53] VITALS: TEMP 98.4
[2024-05-25 11:30] VITALS: BP 98/61; O2SAT 93
== END ==
LOC: M IRPRO 09:42
PROVIDERS: ATTEND Internal Medicine Medical Oncology
DX: C21.0 Malignant neoplasm of anus, unspecified (principal)
CPT/HCPCS: 36589; J0690

== ENCOUNTER → 2024-07-15 | Outpatient (CLI) | payer OTHER ==
[~2024-07-15] MED LIST changes: +GASTROGRAFIN SOLUTION 30ML As Ordered ONE; +ISOVUE-370 76% 100ML VIAL As Ordered ONE; -LIDOCAINE 1% MDV 20ML VIAL As Ordered ONE; -LIDOCAINE W/EPINEPHRINE 1% 20ML VIAL As Ordered ONE; -MIDAZOLAM INJ 2MG/2ML VIAL As Ordered ONE; -NS 1,000 ML IV SCH; -ceFAZolin 2 GM/D5W 50 ML IV BAG As Ordered ONE; -ceFAZolin SOD 2 GM in IV 1 EA IV ONE; -fentaNYL 100 MCG/2 ML INJECTION As Ordered ONE
== END ==
LOC: M RAD 10:42
PROVIDERS: ATTEND General Practice
DX: C21.0 Malignant neoplasm of anus, unspecified (principal)
CPT/HCPCS: 74177; Q9963; Q9967

== ENCOUNTER → 2024-07-22 | Outpatient (CLI) | payer OTHER ==
[~2024-07-22] MED LIST changes: -GASTROGRAFIN SOLUTION 30ML As Ordered ONE; -ISOVUE-370 76% 100ML VIAL As Ordered ONE; +PRED50TA PO
== END ==
LOC: M ONCR 10:42
PROVIDERS: ATTEND General Practice
DX: C21.0 Malignant neoplasm of anus, unspecified (principal); K52.9 Noninfective gastroenteritis and colitis, unspecified; F17.210 Nicotine dependence, cigarettes, uncomplicated; Z88.6 Allergy status to analgesic agent; Z88.8 Allergy status to other drugs, medicaments and biological substances; Z79.899 Other long term (current) drug therapy; Z92.21 Personal history of antineoplastic chemotherapy; Z92.3 Personal history of irradiation
CPT/HCPCS: 36415; 87507; G0463

== ENCOUNTER → 2024-10-22 | Outpatient (CLI) | payer OTHER | LOC: M ONCR 10:40 | PROVIDERS: ATTEND General Practice | DX: C21.0 Malignant neoplasm of anus, unspecified (principal); F17.210 Nicotine dependence, cigarettes, uncomplicated; Z92.21 Personal history of antineoplastic chemotherapy; Z92.3 Personal history of irradiation; Z88.6 Allergy status to analgesic agent; Z88.8 Allergy status to other drugs, medicaments and biological substances; Z79.899 Other long term (current) drug therapy ==

== ENCOUNTER → 2024-11-04 | Outpatient (CLI) | payer OTHER | LOC: M RAD 12:53 | PROVIDERS: ATTEND General Practice | DX: C21.0 Malignant neoplasm of anus, unspecified (principal); J43.2 Centrilobular emphysema; R91.1 Solitary pulmonary nodule ==

== ENCOUNTER 2024-11-30 09:44 | Inpatient (IN) | payer OTHER ==
[2024-11-30] VITALS (18 sets, daily range): BP systolic 96; BP diastolic 52; TEMP 98.1–99.3; O2SAT 79–100
[~2024-11-30] VITALS: Ht 144.8 cm; Wt 37.3 kg
[2024-11-30 10:23] LABS: BASO # 0.1 10^3/uL (0.0-0.2); BASO % 0.3 % (0.0-1.0); EOS # 0.1 10^3/uL (0.0-0.5); EOS % 0.8 % (0.0-3.0); HEMATOCRIT 36.9 % (36.0-47.0); HEMOGLOBIN 12.6 g/dl (12.0-15.5); LYMPH # 0.6 10^3/uL (1.5-5.0); LYMPH % 4.1 % (24.0-44.0); MEAN CORPUSCULAR HEMOGLOBIN 33.2 pg (27.0-33.0); MEAN CORPUSCULAR HGB CONC 34.1 g/dl (32.0-36.5); MEAN CORPUSCULAR VOLUME 97.1 fl (80.0-96.0); MONO # 1.6 10^3/uL (0.0-0.8); MONO % 10.6 % (2.0-8.0); NEUTROPHILS # 12.3 10^3/uL (1.5-8.5); NEUTROPHILS % 83.7 % (36.0-66.0); PLATELET COUNT, AUTOMATED 325 10^3/uL (150-450); WHITE BLOOD COUNT 14.7 10^3/uL (4.0-10.0)
[2024-11-30 10:48] LABS: LIPASE 26 U/L (12-53)
[2024-11-30 10:50] LABS: ABG BASE EXCESS -0.2 (-2.0-2.0); ABG O2 SATURATION 96.3 % (95.0-99.0); ABG PARTIAL PRESSURE CO2 32.9 mmHg (35.0-45.0); ABG PARTIAL PRESSURE O2 85.9 mmHg (75.0-100.0); ABG STANDARD HCO3 24.3 MMOL/L. (22.0-26.0); ABG pH (ARTERIAL) 7.462 UNITS (7.350-7.450)
[2024-11-30 10:51] LABS: ALBUMIN 3.5 G/DL (3.2-5.2); ALKALINE PHOSPHATASE 107 U/L (35-104); ALT/SGPT < 9 U/L (7.0-40); AST/SGOT 13 U/L (<34); BILIRUBIN,DIRECT 0.2 MG/DL (<0.4); BILIRUBIN,TOTAL 0.5 MG/DL (0.3-1.2); BLOOD UREA NITROGEN 10 MG/DL (9-23); CALCIUM LEVEL 9.8 MG/DL (8.5-10.1); CARBON DIOXIDE LEVEL 27 MMOL/L (20-31); CHLORIDE LEVEL 102 MMOL/L (98-107); CREATININE FOR GFR 0.86 MG/DL (0.55-1.30); GLOMERULAR FILTRATION RATE > 60.0 (>51); GLUCOSE, FASTING 109 MG/DL (60-100); POTASSIUM SERUM 3.5 MMOL/L (3.5-5.1); SODIUM LEVEL 138 MMOL/L (136-145); TOTAL PROTEIN 6.9 G/DL (5.7-8.2)
[2024-11-30] MEDS ORDERED: ISOVUE-370 76% 100ML VIAL As Ordered ONE (10:55)
[2024-11-30] MEDS ORDERED: ONDANSETRON 4MG 2ML VIAL IV PRN (12:20)
[2024-11-30] MEDS: PIPERACILLIN/TAZOBACTAM SOD 4.5 GM in DEXTROSE 5% (D5W) ADV/MINI-BAG 50 ML IV ONE (12:27)
[2024-11-30] MEDS: DOXYCYCLINE HYCLATE 100MG TABLET PO SCH (12:53)
[2024-11-30] MEDS: LACTOBACILLUS ACIDOPHILUS CAP (BACID) PO SCH (12:53)
[2024-11-30] MEDS ORDERED: HOME MED LIST COMPLETE! XX SCH (13:15)
[2024-11-30] MEDS: NS (Normal Saline) 0.9% 1,000 ML IV ONE (13:16)
[2024-11-30] MEDS: LEVALBUTEROL 1.25MG 0.5ML CONCENTRATE NEB INH SCH (15:18)
[2024-11-30] MEDS: IPRATROPIUM 0.02% SOLN 0.5MG 2.5ML NEB NEB SCH (15:18)
[2024-11-30] MEDS: guaiFENesin DM LIQ 10ML UD PO SCH (17:07)
[2024-11-30] MEDS: methylPREDNISolone 40MG 1ML VIAL IV SCH (17:07)
[2024-11-30] MEDS: ACETAMINOPHEN 325 MG TAB PO PRN (17:08)
[2024-11-30] MEDS: MIDODRINE 5 MG TAB PO ONE (17:09)
[2024-11-30] MEDS: PIPERACILLIN/TAZOBACTAM SOD 4.5 GM in DEXTROSE 5% (D5W) ADV/MINI-BAG 50 ML IV SCH (17:10)
[2024-11-30] MEDS: FORMOTEROL FUMARATE 20 MCG/2 ML INHALATION SOLUTION (PERFOROMIST) INH SCH (19:51)
[2024-11-30] MEDS: GLYCOPYRROLATE INJ 0.2 MG/ML 2 ML VIAL NEB SCH (19:51)
[2024-11-30 20:35] LABS: ABG BASE EXCESS -3.9 (-2.0-2.0); ABG HCO3 20.5 MMOL/L (22.0-26.0); ABG O2 SATURATION 97.7 % (95.0-99.0); ABG PARTIAL PRESSURE CO2 34.8 mmHg (35.0-45.0); ABG PARTIAL PRESSURE O2 105.7 mmHg (75.0-100.0); ABG STANDARD HCO3 21.2 MMOL/L. (22.0-26.0); ABG TOTAL CO2 21.5 MMOL/L (22.0-29.0); ABG pH (ARTERIAL) 7.387 UNITS (7.350-7.450)
[2024-11-30] MEDS ORDERED: guaiFENesin ER TABLET 600 MG TAB PO SCH (21:00)
[2024-11-30] MEDS: BENZONATATE 100MG CAPSULE PO SCH (21:05)
[2024-11-30] MEDS: OMEPRAZOLE 20MG CAP PO SCH (21:05)
[2024-11-30] MEDS: ATORVASTATIN 20 MG TAB PO SCH (21:06)
[2024-12-01] VITALS (9 sets, daily range): BP systolic 103–118; BP diastolic 52–59; TEMP 98–98.8; O2SAT 90–97
[2024-12-01 07:49] LABS: PREALBUMIN 9.5 MG/DL (10.0-40.0)
[2024-12-01 08:00] LABS: BLOOD UREA NITROGEN 13 MG/DL (9-23); CALCIUM LEVEL 8.5 MG/DL (8.5-10.1); CARBON DIOXIDE LEVEL 24 MMOL/L (20-31); CHLORIDE LEVEL 105 MMOL/L (98-107); CREATININE FOR GFR 0.73 MG/DL (0.55-1.30); GLOMERULAR FILTRATION RATE > 60.0 (>51); GLUCOSE, FASTING 215 MG/DL (60-100); MAGNESIUM LEVEL 1.2 MG/DL (1.8-2.4); PHOSPHORUS LEVEL 3.2 MG/DL (2.5-4.9); POTASSIUM SERUM 2.9 MMOL/L (3.5-5.1); SODIUM LEVEL 138 MMOL/L (136-145)
[2024-12-01] MEDS: ENOXAPARIN 40MG/0.4ML SYRINGE (J1650 PER 10MG) SC SCH (08:02)
[2024-12-01 08:16] LABS: BASO % 0.2 % (0.0-1.0); HEMATOCRIT 29.3 % (36.0-47.0); LYMPH # 0.2 10^3/uL (1.5-5.0); LYMPH % 1.8 % (24.0-44.0); MEAN CORPUSCULAR HEMOGLOBIN 33.3 pg (27.0-33.0); MEAN CORPUSCULAR HGB CONC 34.5 g/dl (32.0-36.5); MEAN CORPUSCULAR VOLUME 96.7 fl (80.0-96.0); MONO # 0.1 10^3/uL (0.0-0.8); MONO % 1.4 % (2.0-8.0); NEUTROPHILS # 9.6 10^3/uL (1.5-8.5); NEUTROPHILS % 96.3 % (36.0-66.0); PLATELET COUNT, AUTOMATED 283 10^3/uL (150-450); RED BLOOD COUNT 3.03 10^6/uL (4.00-5.40)
[2024-12-01 08:21] LABS: HEMOGLOBIN 10.1 g/dl (12.0-15.5)
[2024-12-01] MEDS: MAG SULF 1GM/100ML (MAG RUN) 1 GM in IV 1 EA IV SCH (09:39)
[2024-12-01] MEDS: POTASSIUM CHLORIDE 10MEQ SR TABLET PO SCH (09:39)
[2024-12-01] MEDS: MAGNESIUM OXIDE 400MG TAB (MAG-OX) PO ONE (09:39)
[2024-12-01 16:21] LABS: IONIZED CALCIUM 4.8 MG/DL (4.5-5.3)
[2024-12-01 16:57] LABS: MAGNESIUM LEVEL 2.1 MG/DL (1.8-2.4); POTASSIUM SERUM 3.9 MMOL/L (3.5-5.1)
[2024-12-02] VITALS (25 sets, daily range): BP systolic 100–124; BP diastolic 51–65; TEMP 97.7–98.6; O2SAT 76–96
[2024-12-02 06:31] LABS: BASO % 0.1 % (0.0-1.0); HEMATOCRIT 29.1 % (36.0-47.0); LYMPH # 0.3 10^3/uL (1.5-5.0); LYMPH % 1.7 % (24.0-44.0); MEAN CORPUSCULAR HEMOGLOBIN 33.3 pg (27.0-33.0); MEAN CORPUSCULAR HGB CONC 34.4 g/dl (32.0-36.5); MONO # 0.7 10^3/uL (0.0-0.8); NEUTROPHILS # 15.7 10^3/uL (1.5-8.5); NEUTROPHILS % 93.6 % (36.0-66.0); PLATELET COUNT, AUTOMATED 288 10^3/uL (150-450); WHITE BLOOD COUNT 16.8 10^3/uL (4.0-10.0)
[2024-12-02 06:47] LABS: BLOOD UREA NITROGEN 11 MG/DL (9-23); CALCIUM LEVEL 9.4 MG/DL (8.5-10.1); CARBON DIOXIDE LEVEL 21 MMOL/L (20-31); CHLORIDE LEVEL 111 MMOL/L (98-107); GLOMERULAR FILTRATION RATE > 60.0 (>51); GLUCOSE, FASTING 148 MG/DL (60-100); POTASSIUM SERUM 4.5 MMOL/L (3.5-5.1); SODIUM LEVEL 140 MMOL/L (136-145)
[2024-12-02] MEDS: NS 500 ML IV ONE (08:58)
[2024-12-02] MEDS: MIDODRINE 5 MG TAB PO ONE (08:58)
[2024-12-02] MEDS: predniSONE 20 MG TAB PO SCH (09:00)
[2024-12-02] MEDS ORDERED: CEFD1CAP9 PO (10:27)
[2024-12-02] MEDS ORDERED: DOXY100T PO (10:27)
[2024-12-02] MEDS ORDERED: BACI1CAP PO (10:27)
[2024-12-02 10:45] LABS: PROCALCITONIN 0.73 ng/ml
[2024-12-04 18:44] LABS: URINE STREP PNEUMONIAE ANTIGEN NOT DETECTED (NOT DETECT)
[2024-12-07 14:22] LABS: MYCOPLASMA PNEUMONIAE IGG 1.97 (<=0.90)
== END 2024-12-02 15:20 | disposition left against medical advice (07) | DRG 720 ==
LOC: M ED 09:44 → M ED INP 12:22 → M PCU 15:36
PROVIDERS: ADMIT General Practice; ATTEND General Practice
DX: A41.9 Sepsis, unspecified organism (principal); J96.01 Acute respiratory failure with hypoxia; D84.9 Immunodeficiency, unspecified; E46 Unspecified protein-calorie malnutrition; R64 Cachexia; J18.9 Pneumonia, unspecified organism; C21.0 Malignant neoplasm of anus, unspecified; J44.0 Chronic obstructive pulmonary disease with (acute) lower respiratory infection; J21.9 Acute bronchiolitis, unspecified; J98.11 Atelectasis; F17.200 Nicotine dependence, unspecified, uncomplicated; Z92.21 Personal history of antineoplastic chemotherapy; Z92.3 Personal history of irradiation; E78.00 Pure hypercholesterolemia, unspecified; Z88.6 Allergy status to analgesic agent; Z88.8 Allergy status to other drugs, medicaments and biological substances; Z79.899 Other long term (current) drug therapy

== ENCOUNTER → 2025-04-06 | Outpatient (REF) | payer OTHER, MEDICAID ==
[~2025-04-06] MED LIST changes: +ACET-897 PO; +ATIV1TAB10 PO; +BACI1CAP PO; +CEFD1CAP9 PO; -CLOT10TR PO; +CLOT10TR11 PO; +DOXY100T PO; +MORP1SOL5 PO; -PRED50TA PO; +PRED50TA57 PO
[2025-04-06 16:25] LABS: APPEARANCE, URINE CLEAR (CLEAR); BACTERIA, URINE AUTO NEGATIVE (NEGATIVE); BILIRUBIN, URINE AUTO NEGATIVE (NEGATIVE); BLOOD, URINE BLOOD 3+ (NEGATIVE); COLOR, URINE YELLOW (YELLOW); GLUCOSE, URINE (UA) AUTO NEGATIVE (NEGATIVE); KETONE, URINE AUTO NEGATIVE (NEGATIVE); LEUKOCYTE ESTERASE, URINE AUTO 1+ (NEGATIVE); NITRITE, URINE AUTO NEGATIVE (NEGATIVE); PROTEIN, URINE AUTO NEGATIVE (NEGATIVE); RBC, URINE AUTO 14 /HPF (0-3); SPECIFIC GRAVITY URINE AUTO 1.004 (1.002-1.035); SQUAMOUS EPITHELIAL CELL UR AU 0 /HPF (0-6); UROBILINOGEN, URINE AUTO 0.2 mg/dL (0.0-2.0); WBC, URINE AUTO 2 /HPF (0-3)
== END ==
LOC: M LAB REF 15:50
PROVIDERS: ATTEND Internal Medicine
DX: N39.0 Urinary tract infection, site not specified (principal)

== ENCOUNTER 2025-04-08 12:53 | Emergency (ER) | payer OTHER, MEDICAID ==
[~2025-04-08] VITALS: Ht 144.8 cm; Wt 35.5 kg
[~2025-04-08 12:53] MED LIST changes: -ACET-897 PO; -ATIV1TAB10 PO; -MORP1SOL5 PO
[2025-04-08] MEDS: ONDANSETRON 4MG 2ML VIAL IV ONE (15:09)
[2025-04-08] MEDS: MORPHINE 4 MG/ML 1ML VIAL IV PRN (15:10)
[2025-04-08 15:22] LABS: BASO % 0.2 % (0.0-1.0); EOS # 0.2 10^3/uL (0.0-0.5); EOS % 1.5 % (0.0-3.0); HEMATOCRIT 34.2 % (36.0-47.0); HEMOGLOBIN 11.7 g/dl (12.0-15.5); LYMPH # 0.8 10^3/uL (1.5-5.0); LYMPH % 6.2 % (24.0-44.0); MEAN CORPUSCULAR HEMOGLOBIN 34.2 pg (27.0-33.0); MEAN CORPUSCULAR HGB CONC 34.2 g/dl (32.0-36.5); MONO # 0.8 10^3/uL (0.0-0.8); MONO % 6.4 % (2.0-8.0); NEUTROPHILS # 10.5 10^3/uL (1.5-8.5); NEUTROPHILS % 85.4 % (36.0-66.0); PLATELET COUNT, AUTOMATED 296 10^3/uL (150-450); RED BLOOD COUNT 3.42 10^6/uL (4.00-5.40); WHITE BLOOD COUNT 12.3 10^3/uL (4.0-10.0)
[2025-04-08 15:37] LABS: LIPASE 26 U/L (12-53)
[2025-04-08 15:39] LABS: ALBUMIN 4.2 G/DL (3.2-5.2); ALKALINE PHOSPHATASE 83 U/L (35-104); ALT/SGPT < 9 U/L (7.0-40); AST/SGOT 12 U/L (<34); BILIRUBIN,TOTAL 0.4 MG/DL (0.3-1.2); BLOOD UREA NITROGEN 12 MG/DL (9-23); CARBON DIOXIDE LEVEL 29 MMOL/L (20-31); CHLORIDE LEVEL 102 MMOL/L (98-107); CREATININE FOR GFR 0.97 MG/DL (0.55-1.30); GLOMERULAR FILTRATION RATE 69.9 (>51); GLUCOSE, FASTING 103 MG/DL (60-100); POTASSIUM SERUM 3.7 MMOL/L (3.5-5.1); SODIUM LEVEL 138 MMOL/L (136-145)
[2025-04-08] MEDS ORDERED: ISOVUE-370 76% 100ML VIAL As Ordered ONE (16:17)
[2025-04-08] MEDS ORDERED: ACET-897 PO (16:35)
[2025-04-08] MEDS ORDERED: MORP1SOL5 PO (16:35)
[2025-04-08] MEDS ORDERED: ATIV1TAB10 PO (16:35)
[2025-04-08 18:53] VITALS: BP 102/65; TEMP 98.7; O2SAT 95
== END 2025-04-08 18:45 | disposition home or self-care (01) ==
LOC: M ED 12:53
DX: R10.9 Unspecified abdominal pain (principal); J98.11 Atelectasis; Z51.5 Encounter for palliative care; J44.9 Chronic obstructive pulmonary disease, unspecified; Z88.6 Allergy status to analgesic agent; Z88.8 Allergy status to other drugs, medicaments and biological substances; Z79.52 Long term (current) use of systemic steroids; Z79.899 Other long term (current) drug therapy
CPT/HCPCS: 36415; 74177; 80053; 83690; 85025; 99283; J2405; Q9967